=== PATIENT | female | born 1975 | race Caucasian/White ===

== ENCOUNTER 2016-11-09 10:15 | Emergency (ER) | payer OTHER ==
[~2016-11-09] VITALS: Ht 157.5 cm; Wt 63.2 kg
[~2016-11-09 10:15] MED LIST: ADVAIR 100/501 DISK IH; ADVAIR 250/501 DISK IH; ALBUTEROL SULF8.5 GM IH; ENDOCET 5-3251 EACH PO; FLEXERIL10 MG PO; LYRICA75 MG PO; MEDROL DOSEPAK4 MG PO; METHADONE; METHAZOLAMIDE50 MG PO; MOBIC15 MG PO; MOTRIN800 MG PO; MS CONTIN,ORAMO15 M1 PO; NAPROSYN500 MG PO; PERCOCET 5/31 TABLET PO; PERCOCET 7.51 TABLET PO; PHENERGAN25 MG PR; ULTRACET1 TABLET PO; VENTOLIN HFA18 GM IH; ZOFRAN ODT4 MG PO
[2016-11-09 11:45] LABS: AMPHETAMINE NEGATIVE (500 ng/mL); BARBITURATES NEGATIVE (200 ng/mL); BENZODIAZEPINES NEGATIVE (150 ng/mL); COCAINE NEGATIVE (150 ng/mL); INTERNAL CONTROLS VALID? YES; METHADONE NEGATIVE (200 ng/mL); METHAMPHETAMINE NEGATIVE (500 ng/mL); OPIATES (MORPHINE) PRESUMPTIVE POSITIVE (100 ng/mL); OXYCODONE PRESUMPTIVE POSITIVE (100 ng/mL); PHENCYCLIDINE NEGATIVE (25 ng/mL); PROPOXYPHENE NEGATIVE (300 ng/mL); THC CANNABINOIDS NEGATIVE (50 ng/mL); TRICYCLIC ANTIDEPRESSANTS NEGATIVE (300 ng/mL)
[2016-11-09 11:46] LABS: ADD MEDTOX COMMENT Y
[2016-11-09 12:14] LABS: EOSINOPHIL (%) 0.7 % (0-5); EOSINOPHIL COUNT 0.1 K/uL (0-0.3); IMMATURE GRANULOCYTE (%) 0.1 % (0.0-0.7); IMMATURE GRANULOCYTE COUNT 0.1 K/uL; LYMPHOCYTE COUNT 2.5 K/uL (1.0-2.8); MCH 30.7 PG (29.0-34.0); MCHC 35.1 G/DL (30.0-36.0); MCV 87.4 FL (83-99); MEAN PLAT.VOLUME 11.3 uM^3 (9.5-12.4); MONOCYTE (%) 7.6 % (3-12); MONOCYTE COUNT 0.5 K/uL (0-0.8); NEUTROPHIL (%) 56.1 % (45-76); NEUTROPHIL COUNT 3.9 K/uL (1.8-6.4); PLATELET COUNT 181 K/uL (156-360); RBC DIS.WIDTH-CV 12.2 % (11.8-14.6); RBC DIS.WIDTH-SD 38.2 % (39-53); RED BLOOD COUNT 4.92 M/uL (3.80-5.20)
[2016-11-09 12:24] LABS: CHLORIDE 107 mEq/L (99-109); POTASSIUM 4.1 mEq/L (3.7-5.4); SODIUM 139 mEq/L (136-147)
[2016-11-09 12:26] LABS: GLUCOSE 74 mg/dL (70-99)
[2016-11-09 12:28] LABS: ANION GAP 12 MEQ/L (2-14)
[2016-11-09 12:29] LABS: SERUM ETHYL ALCOHOL 45 mg/dL
[2016-11-09 12:30] LABS: GFR ESTIMATE (CALCULATED) > 59 mL/min/
[2016-11-09 12:31] LABS: UREA NITROGEN (BUN) 9 mg/dL (9-23)
[2016-11-09 13:32] VITALS: BP 124/98
== END 2016-11-09 13:32 | disposition home or self-care (01) ==
LOC: EME 10:15
PROVIDERS: Emergency Medicine
DX: F41.9 Anxiety disorder, unspecified (principal); F10.129 Alcohol abuse with intoxication, unspecified; Y90.2 Blood alcohol level of 40-59 mg/100 ml; J45.909 Unspecified asthma, uncomplicated; F17.200 Nicotine dependence, unspecified, uncomplicated
CPT/HCPCS: 80048; 84999; 85025; 90837; 99281; 99285; G0480

== ENCOUNTER 2017-01-13 20:44 | Emergency (ER) | payer OTHER ==
[~2017-01-13] VITALS: Ht 157.5 cm; Wt 64.3 kg
[2017-01-13] MEDS ORDERED: CIPRO500 MG PO (22:09)
[2017-01-13] MEDS ORDERED: BACTROBAN OINTM22 GM TP (22:18)
[2017-01-13 22:27] VITALS: BP 106/77
== END 2017-01-13 22:28 | disposition home or self-care (01) ==
LOC: RME 20:44 → EME 20:44 → RME 22:28
DX: L73.8 Other specified follicular disorders (principal); J45.909 Unspecified asthma, uncomplicated; F41.9 Anxiety disorder, unspecified; G58.8 Other specified mononeuropathies; F17.200 Nicotine dependence, unspecified, uncomplicated; Z79.891 Long term (current) use of opiate analgesic
CPT/HCPCS: 99281; 99284

== ENCOUNTER 2017-01-17 19:52 | Emergency (ER) | payer OTHER ==
[~2017-01-17] VITALS: Ht 157.5 cm; Wt 63.4 kg
[~2017-01-17 19:52] MED LIST changes: +BACTROBAN OINTM22 GM TP; +CIPRO500 MG PO
[2017-01-17] MEDS ORDERED: KEFLEX500 MG PO (21:53)
[2017-01-17 22:01] VITALS: BP 124/86
== END 2017-01-17 22:02 | disposition home or self-care (01) ==
LOC: EME 19:52
DX: L73.9 Follicular disorder, unspecified (principal); G89.29 Other chronic pain; Z79.891 Long term (current) use of opiate analgesic; J45.909 Unspecified asthma, uncomplicated; F17.200 Nicotine dependence, unspecified, uncomplicated
CPT/HCPCS: 99281; 99284

== ENCOUNTER 2017-06-26 09:18 | Emergency (ER) | payer OTHER ==
[~2017-06-26] VITALS: Ht 157.5 cm; Wt 62.3 kg
[~2017-06-26 09:18] MED LIST changes: +KEFLEX500 MG PO
[2017-06-26] MEDS ORDERED: MOTRIN600 MG PO (11:51)
[2017-06-26] MEDS ORDERED: LIDODERM 5% P1 PATCH TD (11:51)
[2017-06-26] MEDS ORDERED: FLEXERIL10 MG PO (11:51)
[2017-06-26 12:02] VITALS: BP 116/81
== END 2017-06-26 12:03 | disposition home or self-care (01) ==
LOC: EME 09:18
DX: S13.4XXA Sprain of ligaments of cervical spine, initial encounter (principal); M62.838 Other muscle spasm; S29.012A Strain of muscle and tendon of back wall of thorax, initial encounter; R51 Headache; H53.8 Other visual disturbances; W17.81XA Fall down embankment (hill), initial encounter; F17.200 Nicotine dependence, unspecified, uncomplicated
CPT/HCPCS: 72040; 99281; 99284; J1885